=== PATIENT | female | born 1970 | race Caucasian/White ===

== ENCOUNTER → 2020-10-03 | Outpatient (CLI) | payer OTHER | LOC: KOH-I 08:47 | DX: M54.2 Cervicalgia (principal); M54.5 Low back pain; M54.6 Pain in thoracic spine; R05 Cough | CPT/HCPCS: 71046; 72050; 72070; 72100 ==

== ENCOUNTER → 2021-12-16 | Outpatient (CLI) | payer OTHER | LOC: RAD 10:43 | DX: R05.9 Cough, unspecified (principal); M50.321 Other cervical disc degeneration at C4-C5 level; M54.50 Low back pain, unspecified; M51.34 Other intervertebral disc degeneration, thoracic region; M51.36 Other intervertebral disc degeneration, lumbar region | CPT/HCPCS: 71046; 72050; 72072; 72110 ==